=== PATIENT | male | born 1960 | race Caucasian/White ===

== ENCOUNTER 2023-11-11 01:51 | Emergency (ER) | payer BC ==
[~2023-11-11] VITALS: Ht 193 cm; Wt 100.0 kg
[~2023-11-11 01:51] MED LIST: CIALIS20 MG PO; FOLIC ACID1 MG PO; TERBINAFINE HC250 MG PO
[2023-11-11 02:10] LABS: BASOPHILS 2.1 % (0-2); HEMOGLOBIN 15.9 g/dL (12.0-18.0); MCH 30.3 (27-36); MCHC 33.2 g/dl (30-36); MCV 91.5 fl (81-99); MONOCYTES 9.2 % (0-12); NEUTROPHILS 42.7 % (39-80); PLATELET COUNT 185 K/uL (140-440); RBC 5.24 M/ul (4.3-5.7); RDW 13.8 (10.5-15.0)
[2023-11-11] MEDS ORDERED: ASPIRIN 81 MG CHEW PO ONE (02:15)
[2023-11-11 02:37] LABS: ALBUMIN 4.3 g/dL (3.4-5.0); ALBUMIN/GLOBULIN RATIO 1.23 (1.1-2.4); ANION GAP 11.1 (7-21); BILIRUBIN, TOTAL 0.9 ng/dL (0.2-1.0); BUN/CREATININE RATIO 15.59 (6.0-28.6); CALCIUM 9.6 mg/dL (8.5-10.1); CREATININE, SERUM 1.09 mg/dL (0.70-1.30); MAGNESIUM 2.2 mg/dL (1.8-2.4); POTASSIUM 4.1 mmol/L (3.5-5.1); PROTEIN, TOTAL 7.8 g/dL (6.4-8.2)
[2023-11-11] MEDS ORDERED: FAMOTIDINE 20 MG/ 2 ML VIAL IV ONE (02:45)
[2023-11-11] MEDS ORDERED: LACTATED RINGER'S 1,000 ML IV ONE (03:00)
[2023-11-11 04:03] LABS: BILIRUBIN, URINE NEGATIVE (negative); BLOOD/HGB, URINE NEGATIVE (Negative); KETONE, URINE NEGATIVE (Negative); LEUK ESTERASE, URINE NEGATIVE (negative); NITRITE, URINE NEGATIVE (negative); PH, URINE 6.5 (5-7)
[2023-11-11 04:30] VITALS: BP 103/63
--- NOTE | 2023-11-11 21:37 | EKG ---
[facility] [address] [facility] [place] [address] Signed Normal sinus rhythm Normal ECG No previous ECGs available Confirmed by Francisco Barksdale MD () on 11/11/2023 9:36:53 PM Electronically Signed By: FRANCISCO BARKSDALE MD 11/11/237 PATIENT NAME: NICANOR REID JESUS ALBERTO Electrocardiogram DATE OF : 64 PHYSICIAN: FRANCISCO BARKSDALE MD REPORT #: [id number] REPORT IS CONFIDENTIAL AND NOT TO BE RELEASED WITHOUT AUTHORIZATION
== END 2023-11-11 04:35 | disposition home or self-care (01) ==
LOC: ED 01:51
PROVIDERS: Internal Medicine
DX: B34.9 Viral infection, unspecified (principal); Z11.52 Encounter for screening for COVID-19; Z79.899 Other long term (current) drug therapy
CPT/HCPCS: 36415; 71045; 80053; 81003; 83735; 83880; 84484; 85025; 93005; 93010; 96374; 99285-25; A9270; J7121; U0002